=== PATIENT | female | born 1965 | race Caucasian/White ===

== ENCOUNTER → 2016-03-15 | Outpatient (CLI) | payer BC, OTHER ==
[2016-03-15 14:24] LABS: BASO % 0.3 %; BASO ABS # 0.02 K/uL (0-0.2); COMPLETE YES; EOS % 2.8 %; HEMATOCRIT 39.6 % (37-47); IG% 0.2 %; LYMPH % 32.8 %; LYMPH ABS # 2.01 K/uL (1.2-3.4); MEAN CELL VOLUME 91.2 fL (80-100); MEAN CORPUSCULAR HGB CONC 32.8 g/dl (32-36); MONO % 9.2 %; NEUT % 54.7 %; PLATELET COUNT 330 K/uL (130-400); RED BLOOD COUNT 4.34 M/uL (4.2-5.4); WHITE BLOOD COUNT 6.12 K/uL (4.8-10.8)
[2016-03-15 14:30] LABS: ALT/SGPT 49 U/L (12-78); BLOOD UREA NITROGEN 14 mg/dl (7-18); BUN/CREATININE RATIO 19.7 (10-20); CALCIUM 8.9 mg/dl (8.5-10.1); CARBON DIOXIDE 23 mmol/L (21-32); CHLORIDE 106 mmol/L (98-107); CHOLESTEROL 271 mg/dl (0-200); CREATININE 0.73 mg/dl (0.60-1.20); GLUCOSE 108 mg/dl (70-99); POTASSIUM 3.9 mmol/L (3.5-5.1); SODIUM 141 mmol/L (136-145)
[2016-03-15 14:34] LABS: ALB/GLOB RATIO 0.9 (0.9-2); ALKALINE PHOSPHATASE 81 U/L (45-117); AST/SGOT 21 U/L (15-37); CHOLESTEROL/HDL RATIO 6.5; HDL CHOLESTEROL 42 mg/dl; LDL CHOLESTEROL CALCULATED 166 mg/dl; TRIGLYCERIDES 314 mg/dl (0-150); VERY LOW DENSITY LIPOPROT CALC 63 mg/dl
== END | disposition home or self-care (01) ==
LOC: C.LABSPEC 13:16
PROVIDERS: ATTEND Family Medicine
DX: E78.2 Mixed hyperlipidemia (principal); M79.2 Neuralgia and neuritis, unspecified; M54.9 Dorsalgia, unspecified

== ENCOUNTER → 2016-09-21 | Outpatient (CLI) | payer BC, OTHER ==
[2016-09-21 18:46] LABS: BASO % 0.3 %; BASO ABS # 0.03 K/uL (0-0.2); COMPLETE YES; HEMATOCRIT 37.6 % (37-47); IG% 0.3 %; LYMPH % 30.8 %; LYMPH ABS # 3.62 K/uL (1.2-3.4); MEAN CELL VOLUME 90.8 fL (80-100); MEAN CORPUSCULAR HEMOGLOBIN 30.2 pg (25-34); MEAN CORPUSCULAR HGB CONC 33.2 g/dl (32-36); MEAN PLATELET VOLUME 9.2 fL (7.4-10.4); MONO % 5.7 %; NEUT % 60.9 %; PLATELET COUNT 355 K/uL (130-400); RED BLOOD COUNT 4.14 M/uL (4.2-5.4); WHITE BLOOD COUNT 11.74 K/uL (4.8-10.8)
[2016-09-21 18:52] LABS: ALT/SGPT 32 U/L (12-78); BLOOD UREA NITROGEN 12 mg/dl (7-18); BUN/CREATININE RATIO 14.4 (10-20); CALCIUM 8.7 mg/dl (8.5-10.1); CARBON DIOXIDE 26 mmol/L (21-32); CHLORIDE 105 mmol/L (98-107); CHOLESTEROL 178 mg/dl (0-200); CREATININE 0.84 mg/dl (0.60-1.20); GLUCOSE 134 mg/dl (70-99); POTASSIUM 3.6 mmol/L (3.5-5.1); SODIUM 139 mmol/L (136-145)
[2016-09-21 18:55] LABS: ALB/GLOB RATIO 0.9 (0.9-2); ALKALINE PHOSPHATASE 77 U/L (45-117); AST/SGOT 16 U/L (15-37); CHOLESTEROL/HDL RATIO 4.1; HDL CHOLESTEROL 43 mg/dl; LDL CHOLESTEROL CALCULATED 82 mg/dl; TRIGLYCERIDES 265 mg/dl (0-150); VERY LOW DENSITY LIPOPROT CALC 53 mg/dl
== END | disposition home or self-care (01) ==
LOC: C.LABSPEC 15:14
PROVIDERS: ATTEND Family Medicine
DX: E78.2 Mixed hyperlipidemia (principal)

== ENCOUNTER → 2016-10-13 | Outpatient (CLI) | payer OTHER ==
[2016-10-13 13:47] LABS: ALT/SGPT 77 U/L (12-78); BLOOD UREA NITROGEN 10 mg/dl (7-18); BUN/CREATININE RATIO 12.2 (10-20); CALCIUM 9.4 mg/dl (8.5-10.1); CARBON DIOXIDE 26 mmol/L (21-32); CHLORIDE 105 mmol/L (98-107); CREATININE 0.85 mg/dl (0.60-1.20); GLUCOSE 93 mg/dl (70-99); SODIUM 140 mmol/L (136-145)
[2016-10-13 14:00] LABS: ALB/GLOB RATIO 0.9 (0.9-2); ALKALINE PHOSPHATASE 94 U/L (45-117); AST/SGOT 40 U/L (15-37)
== END | disposition home or self-care (01) ==
LOC: C.LABSPEC 12:51
PROVIDERS: ATTEND Family Medicine
DX: R53.83 Other fatigue (principal); R11.0 Nausea

== ENCOUNTER → 2016-11-29 | Outpatient (CLI) | payer OTHER ==
[2016-11-29 18:50] LABS: THYROID STIMULATING HORMONE 1.2 uIu/ml (0.300-4.500)
== END | disposition home or self-care (01) ==
LOC: C.LABSPEC 18:10
PROVIDERS: ATTEND Family Medicine
DX: E03.9 Hypothyroidism, unspecified (principal)

== ENCOUNTER → 2017-03-29 | Outpatient (CLI) | payer OTHER ==
[2017-03-29 14:32] LABS: BASO % 0.3 %; BASO ABS # 0.03 K/uL (0-0.2); EOS % 1.7 %; EOS ABS # 0.15 K/uL (0-0.5); HEMATOCRIT 40.9 % (37-47); HEMOGLOBIN 13.6 g/dL (12.0-16.0); IG# 0.01 K/uL (0.00-0.02); LYMPH % 34.1 %; LYMPH ABS # 2.93 K/uL (1.2-3.4); MEAN CELL VOLUME 91.1 fL (80-100); MEAN CORPUSCULAR HEMOGLOBIN 30.3 pg (25-34); MEAN CORPUSCULAR HGB CONC 33.3 g/dl (32-36); MEAN PLATELET VOLUME 9.4 fL (7.4-10.4); MONO % 8.5 %; MONO ABS # 0.73 K/uL (0.11-0.59); NEUT % 55.3 %; NEUT ABS # 4.73 K/uL (1.4-6.5); PLATELET COUNT 356 K/uL (130-400); RED CELL DISTRIBUTION WIDTH CV 13.6 % (11.5-14.5); WHITE BLOOD COUNT 8.58 K/uL (4.8-10.8)
[2017-03-29 15:18] LABS: ALBUMIN 3.5 gm/dl (3.4-5.0); ALT/SGPT 52 U/L (12-78); BLOOD UREA NITROGEN 14 mg/dl (7-18); CALCIUM 9.5 mg/dl (8.5-10.1); CARBON DIOXIDE 29 mmol/L (21-32); CHOLESTEROL 179 mg/dl (0-200); CREATININE 0.71 mg/dl (0.60-1.20); GLUCOSE 93 mg/dl (70-99); POTASSIUM 4.6 mmol/L (3.5-5.1); SODIUM 138 mmol/L (136-145)
[2017-03-29 15:27] LABS: ALKALINE PHOSPHATASE 99 U/L (45-117); AST/SGOT 23 U/L (15-37); LDL CHOLESTEROL CALCULATED 73 mg/dl; TOTAL PROTEIN 7.5 gm/dl (6.4-8.2)
== END | disposition home or self-care (01) ==
LOC: C.LABSPEC 12:23
PROVIDERS: ATTEND Family Medicine
DX: E78.2 Mixed hyperlipidemia (principal); F32.9 Major depressive disorder, single episode, unspecified; E03.9 Hypothyroidism, unspecified

== ENCOUNTER 2020-06-06 06:48 | Observation (INO) ==
--- NOTE | 2020-05-30 19:32 | History and Physical Report ---
DATE OF ADMISSION: 06/06/2020 CHIEF COMPLAINT: Left knee pain and discomfort. HISTORY OF PRESENT ILLNESS: The patient is a 54-year-old female well known to me from previous right knee replacement done almost 3 years ago. She has got a long history of knee problems. She has been through extensive conservative treatment in the past, which has not helped much. She takes oral medicines without much relief. She has had injections, which do not really help much. Her right knee is doing well that she has had it replaced and she is limited by her left knee pain. It is a constant pain. The more she walks, the more it hurts. She can walk a couple of blocks and that is about it. Since her last surgery, she has lost about 50 pounds. Unfortunately, she has gained some of this back due to her difficulty maintaining an active lifestyle and the COVID epidemic. She would like to have her left knee fixed. PAST MEDICAL HISTORY: 1. ____ 2. ____ 3. Hypothyroidism. 4. Low back pain/sciatica. 5. Gastroesophageal reflux disease. PAST SURGICAL HISTORY: Includes, 1. Right knee replacement done on 08/23/2017. 2. Endometrial ablation. ALLERGIES: LATEX AND AMOXICILLIN, WHICH CAUSE A RASH. ALSO DESCRIBES ALLERGIES TO SULFA, WHICH CAUSES A RASH. SHE ALSO HAS AN APPARENT NICKEL ALLERGY. CURRENT MEDICINES: Include, 1. Lipitor once a day. 2. Gabapentin 600 mg 3 times a day. 3. Levothyroxine 25 mcg a day. 4. Nabumetone ____ mg twice a day. SOCIAL HISTORY: Significant for a 54-year-old female. She does not smoke. One drink for a week. FAMILY HISTORY: Noncontributory. REVIEW OF SYSTEMS: Negative for diabetes, neurologic problem, vascular problems, bleeding disorders. No chest pain or shortness of breath. No history of DVT or PE. No history of bleeding problems. She does have a history of chronic stasis changes distally, which have improved since her weight loss. PHYSICAL EXAMINATION: GENERAL: Shows a pleasant, middle-aged female who looks to be in good health. HEENT: Benign. NECK: Supple, no lymphadenopathy. LUNGS: Clear to auscultation. HEART: Has a regular rate and rhythm. ABDOMEN: Soft, nontender, nondistended. EXTREMITIES: Grossly neurovascularly intact except as follows: Examination of the left knee reveals the patient ambulates independently. She has got valgus alignment to her knee. This is increased with weightbearing. She does limp on the left side. She has about a 10 degree flexion contracture on this side and can only bend to about 110. The knee is pretty stiff. She has crepitance and grinding with knee motion. No pain with hip motion. Examination of the right knee reveals a well-healed incision. No swelling. Range of motion 0-120. X-RAYS: X-rays of the left knee are reviewed. It shows advanced left knee DJD. She has complete loss of her lateral joint space. She has subchondral sclerosis. She has got osteophytes off the lateral femoral condyle and lateral tibial plateau. ASSESSMENT: A 54-year-old white female almost 3 years out from her right knee replacement with advanced left knee degenerative joint disease. She has failed conservative measures. She would like to have her left knee replaced. She has a history of chronic venous stasis changes, which are improved since her weight loss. PLAN: We are going to take her to the operating room and do a left total knee replacement. The risks and benefits of this procedure were explained to the patient including but not limited to DVT, PE, , infection, neurological injury, vascular injury, bleeding problem, pain, limited range of motion, stiffness, failure to relieve her symptoms, incomplete relief of symptoms, need for further surgery in the future, etc. The patient understands and desires to proceed. It was informed that at her young age, this might need to be redone or revised in the future. As far as discharge plans, she is planning to be discharged to a friend's house. She will use [facility]. We will likely use a [employer] knee due to a question of this NICKEL ALLERGY.
--- NOTE | 2020-06-03 12:54 | Anesthesiology Consultation ---
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 Preoperative COVID19 testing completed 06/02/2020 at [facility], results negative. -Patient is very anxious about SAB. Some awareness, but no pain or discomfort with previous SAB in 2018 for TKA. Reassurance provided. -Patient reports being extremely cold in PACU after TKA and that "they kept checking my temperature." Per review of records, temp WNL intra and post- operatively. Chart Review Chart Review: entry level administrative assistant initiated (from previous anesthesia eval) and Patient seen in Pre Admission Testing (03/04/20, R/S under new V#) History Surgery Operation Date: 06/06/20 09:05 Proposed Procedures p Left Total Knee Arthroplasty - Ap Roberts MD Height/Weight Height: 5 ft 6.5 in Weight: 87.09 kg Allergies Allergy/AdvReac Type Severity Reaction Status Date / Time latex Allergy Intermediate RASH, Verified 05/20/20 08:38 ITCHING Sulfa (Sulfonamide Allergy Intermediate Swelling Verified 05/20/20 08:38 Antibiotics) of Lip/Tongue/Throat amoxicillin Allergy Mild RASH Verified 05/20/20 08:38 nickel Allergy Mild SKIN Verified 05/20/20 08:56 IRRITATION Medications Home Medications Medication Instructions Recorded Confirmed Last Taken fexofenadine 180 mg PO QAM 02/04/20 05/20/20 Unknown acetaminophen 650 mg PO TID 05/20/20 05/20/20 Unknown atorvastatin 20 mg PO HS 05/20/20 05/20/20 Unknown gabapentin 300 mg PO TID 05/20/20 05/20/20 Unknown levothyroxine 50 mcg PO QAM 05/20/20 05/20/20 Unknown nabumetone 750 mg PO BID 05/20/20 05/20/20 Unknown Past Medical History Medical History Depression Hyperlipidemia Hypothyroidism Osteoarthritis Peripheral neuropathy Wheezing DURING SUMMER MONTHS (NO INHALER PRESCRIBED) Exercise / Class Metabolic Activity II 4-5 Yardwork/Stairs/Walk up hill Past Family History Family History Grandfather (Maternal) Family history of diabetes mellitus Father Family history of diabetes mellitus Past Surgical History Surgical History H/O LEEP History of anesthesia reaction TROUBLE W/ BODY TEMP. WITH RT TKA History of endometrial ablation History of knee replacement RT [place] teeth removed Past Anesthesia History No Family Hx of Anesthesia Complications PATIENT HAD ISSUES WITH FEELING COLD POST-OP WITH LAST TKA IN 2018. History of PONV No Hx of PONV and No Hx of Motion Sickness Social History Smoking Status: Never smoker Hx Alcohol Use: Yes alcohol intake frequency: holidays/special occasions only substance use type: does not use Physical Exam Vital Signs Vital Signs BP: 126/57 P: 80bpm SPO2: 97% RA T: 97.5 F R: 12 ENMT Mouth: + chipped teeth; no dental restorations and no loose teeth Thyromental Distance: < 3.5 Finger Breadths (3) Mallampati Class: IV Small oral opening. Neck normal visual inspection; neck extension not limited Respiratory normal respiratory effort, lungs clear to auscultation Cardiovascular RRR, no murmur, no edema Testing Laboratory Results Blood Type A Positive 06/02/20 08:49 Antibody Screen NEGATIVE 06/02/20 08:49 Laboratory Tests 06/02/20 06/02/20 06/02/20 08:47 08:47 08:47 WBC 8.11 Hgb 13.7 Hct 40.6 Plt Count 346 PT 9.8 INR 1.0 Sodium 141 Potassium 3.5 Chloride 109 H Carbon Dioxide 27 BUN 11 Creatinine 0.84 Glucose 82 Other Testing Electrocardiogram Date: 03/04/20 Findings: + NSR @ (69BPM with first-degree AV block.) Compared with EKG of 08/08/2017 no significant change was found. Chest X-Ray Date: 03/04/20 Findings: + NAD
[~2020-06-06 06:48] MED LIST: ACETAMINOPHEN 500 MG TAB PO SCH; BUPIVACAINE 0.25% 30 ML VIAL ONE; BUPIVACAINE 0.5 % 5 MG/1 ML PF 10ML VIAL ONE; BUPIVACAINE LIPOSOME/PF 266 MG, BUPIVACAINE/EPINEPHRINE 50 ML, SODIUM CHLORIDE 0.9% 30 ... INFIL SCH; EPINEPHrine INJ 1 MG/ML AMP ONE; FAMOTIDINE 20 MG TAB PO SCH; GABAPENTIN 900 MG DOSE PO SCH; GENERAL ORDER PROBLEM SCH; LR 500ML BOLUS, THEN 15ML/HR IV SCH; LR 60ML/HR IV SCH; Scopolamine 1 MG TDSY TD SCH; TRANEXAMIC ACID 1,000 MG **IV Intra-op IV SCH; ceFAZolin 2000MG 2,000 MG/15 ML SYR IV SCH
--- NOTE | 2020-06-06 06:52 | History & Physical Bridge Note ---
Date of Service June 06, 2020 History & Physical Bridge Note I have examined the patient, reviewed the History & Physical and in the interval since the performance of the History & Physical I have noted the following changes of clinical significance: no changes noted
[2020-06-06] MEDS ORDERED: LIDOCAINE 2% 20 MG/ML 5 ML SYR IV ONE (07:38)
[2020-06-06] MEDS ORDERED: MIDAZOLAM HCL 1 MG/ML 2ML VIAL ONE (07:38)
[2020-06-06] MEDS ORDERED: PROPOFOL IV EMULSION 10 MG/ML 20 ML VIAL IV ONE (07:38)
[2020-06-06] MEDS ORDERED: ONDANSETRON INJ 2 MG/ML 2 ML VIAL IV PRN ×2 (08:25→12:25)
[2020-06-06] MEDS ORDERED: ePHEDrine sulfate 50 MG/ML AMP IV PRN (08:25)
[2020-06-06] MEDS ORDERED: fentaNYL citrate 100 MCG/2 ML VIAL IV PRN (08:25)
[2020-06-06] MEDS ORDERED: PROMETHAZINE HCL 12.5 MG in SODIUM CHLORIDE 0.9% 50 ML IV PRN (08:25)
[2020-06-06] MEDS ORDERED: HYDROmorphone INJ 2 MG/ML SYR/VIAL IV PRN (08:25)
[2020-06-06] MEDS ORDERED: ATROPINE SULFATE 0.1 MG/ML 10ML SYR IV PRN (08:25)
[2020-06-06] MEDS ORDERED: SODIUM CHLORIDE 0.9% PF 50 ML VIAL ONE (08:33)
[2020-06-06] MEDS ORDERED: BACITRACIN INJ 50,000 UNIT VIAL ONE (08:33)
[2020-06-06] MEDS ORDERED: BUPIVACAINE LIPOSOME 1.3% 266 MG/20 ML VIAL ONE (08:33)
[2020-06-06] MEDS ORDERED: BUPIVACAINE 0.25% 30 ML VIAL ONE (08:33)
[2020-06-06] MEDS ORDERED: EPINEPHrine INJ 1 MG/ML AMP ONE (08:33)
[2020-06-06] MEDS ORDERED: KETAMINE 50 MG/5 ML SYRINGE ONE (09:01)
--- NOTE | 2020-06-06 11:03 | Operative Report ---
Post Operative Report Pre & Post Diagnosis Operation Date: 06/06/20 08:50 Pre-Op Diagnosis: Left Knee Degenerative Joint Disease Post-Op Diagnosis: Left Knee Degenerative Joint Disease I identified the patient and participated in the time-out.: Yes Procedure Operation Date: 06/06/20 08:50 Actual Procedures p Left Total Knee Arthroplasty(Left) - Ap Roberts MD Surgeon Ap Roberts MD Publishing Director NIKKO Krishnamurthy Estimated Blood Loss 50 Findings Consistent with Post-Op Diagnosis Operative findings revealed advanced left knee DJD. She had extensive grade 4 [id number] with disease and eburnation of the lateral compartment. She had more spotty but pretty extensive grade 4 changes medially as well as in the patellofemoral joint. She had a valgus deformity to her knee with a moderate-sized joint effusion. Fluids 1000 cc. Specimens Left knee sent for pathology. Drains None. Anesthesia Type Spinal MAC Complications none Disposition Accompanied Patient To Recovery: No Disposition: Recovery Room Indications Patient is a 54-year-old female has had a long history of bilateral knee pain discomfort. She been through extensive conservative treatment the past. She had a right knee replaced 2 and half years ago and done well with that. She continues to be limited by left knee pain discomfort is gotten worse over time. She elected proceed with left total knee arthroplasty. Due to her apparent nickel allergy we elected to use a G[employer]mith [employer] Nephew journey 2 zirconium total knee arthroplasty. Description of Procedure Operative implants consist of: 1. [employer]hew journey 2 size 4 left posterior stabilized femoral component. 2. [employer]hew journey 2 size 3 tibial tray. 3. 11 mm posterior stabilized polyethylene insert. 4. 29 x 9 all polypatella. The patient was taken to the operating identified and placed on the operating table supine position but all contact areas were properly padded with IV on by 5 by anesthesia team. A spinal anesthetic and abductor canal block had been applied in the holding area. Tate catheter was placed in sterile fashion. Left thigh turn was then placed in the left lower extremities and prepped and draped in the usual sterile fashion. The left leg was elevated exsanguinated with use of an Esmarch and tourniquet placed at 300 mmHg. An anterior approach to the left knee was then performed through longitudinal incision centered over the patella. Sharp dissection got through subcutaneous tissue down the extensor mechanism. A medial parapatellar arthrotomy incision was made. Some subperiosteal dissection was carried out medially. The fat pad was resected beneath patella tendon. The lateral patellofemoral ligament was released. Patella was subluxated laterally and the knee was flexed. The osteophytes were taken off distal femur. The ACL and PCL were then released from the distal femur and the tibia subluxated anteriorly. The external tibial alignment jig was then placed in the interface the tibia just 8 mm medially. Proximal tibial cut was made remove about 3 to 4 mm of bone from the medial side. The tibia was then sized to a size 3. I did downsize a slightly in order to get appropriate rotation of the tibial tray. Attention drawn the femur. The distal femur was entered the sharp drill. Intramedullary canal was suction. A left 5 degree valgus cutting guide was placed. This femoral cutting block was pinned in place but distal femoral cut was made to take an additional 2 mm bone off distal femur. We then sized the femur to a size 4. The AP cutting block was placed in the anterior cut, anterior cord, posterior cut, posterior chamfer, posterior anterior chamfer cuts were then made. The knee was then flexed. The remnants of the medial lateral menisci were excised. The osteophytes were taken off the posterior aspect the femur. The femoral component was placed. The milling device for the trochlea was placed and then the we are/intercondylar notch area was reamed. The trochlea was then placed. The tibial tray was then pinned in maximum external rotation. The drill and stem punch were used to create defect in proximal tibia for the tibial tray. We then trialed the knee. The 9 and 10 insert just seemed a little bit lax particularly in extension. With the 11 we had increased stability in extension and appropriate flexion. We elected to use these implants. Attention drawn the patella. The patella was cleaned of all soft tissue. Patella thickness measured 22 mm in thickness was cut down to 14. Sized to a size 29 patella. I did downsize a slightly in order to optimize patellofemoral tracking. The lug holes were drilled for the 29 patella. The lateral osteophyte is moved. Patella button was placed. Knee was taken through range of motion and patella tracked well with a no thumbs test. Attention drawn to placing permanent components. All trial components removed. Bone plug was placed into the distal femur to limit blood loss. A double batch [place] G cement was mixed. G[employer]mith [employer] Nephew journey 2 size 4 left posterior stabilized femoral component, a size 3 tibial tray, a 11 mm posterior stabilized polyethylene insert, and a 29 x 9 all polypatella then cemented in place. Knee was brought out into full extension total cement hardened. Final cement check was then performed. The pericapsular tissues were injected with total 100 cc of a combination of 20 cc of Exparel, 30 cc normal saline, 50 cc of quarter percent Marcaine with epinephrine. The tourniquet was then let down for time tourniquet time 72 minutes. Hemostasis assured use electrocautery. The extensor neck was then closed with combination with #1 PDS suture #1 Vicryl suture in [id number] fashion with extensor mechanism checked found to be intact the subcutaneous tissue then closed with 2 Dexon suture in a buried interrupted fashion skin was closed skin pamela. Leg was then cleaned dried and a sterile dressing both Xeroform, 4 fours, sterile ABD pad, sterile cast padding, Demond bandage were applied. Patient then transferred to the recovery in stable condition. Patient tolerated the procedure well and there were no complications. Pranav Krishnamurthy, my physician media assistant, was present for the entire procedure. His assistance was essential and required for appropriate patient positioning, prepping and draping, surgical exposure, performing the technical details of the operation, placement the implants, closure of the wound, and placement of the sterile bandage. I attest to the content of the Intraoperative Record and any orders documented therein. Any exceptions are noted below.
--- NOTE | 2020-06-06 11:41 | XRay Report ---
XR knee LT 1 or 2V routine CLINICAL HISTORY: Surgical Post Op COMPARISON: None. DISCUSSION: There are postsurgical changes of a total left knee arthroplasty and patellar resurfacing . The femoral tibial components appear well seated. There are overlying skin pamela. There is gas pr esent within the soft tissues consistent with recent surgery. IMPRESSION: Postsurgical changes of a total left knee arthroplasty. ACT 112: Negative or not required by law. Electronically signed by: Wilfrido Rivera M.D. 06/06/2020 11:39 AM
--- NOTE | 2020-06-06 12:17 | Anesthesiology Progress Note ---
Date of Service June 06, 2020 Anesthesia Post Procedure Vital Signs Vital Signs: Temp Pulse Pulse Resp BP BP Pulse Ox 06/06/20 11:30 36.5 C 69 14 104/69 100 06/06/20 11:20 66 18 106/64 100 06/06/20 11:10 73 16 132/63 100 06/06/20 11:00 79 15 120/67 99 06/06/20 10:54 36.7 C 80 16 127/56 L 100 06/06/20 07:34 36.8 C 78 18 116/87 99 Transfer of Care Handoff Completed per policy Notes Mental Status: alert / awake / arousable and participated in evaluation Patient Amnestic to Procedure: Yes Nausea / Vomiting: adequately controlled Pain: adequately controlled Airway Patency, RR, SpO2: stable & adequate BP & HR: stable & adequate Hydration State: stable & adequate Anesthetic Complications: no major complications apparent and Pt Satisfied with anesthetic care
[2020-06-06] MEDS ORDERED: METOCLOPRAMIDE HCL INJ 5 MG/ML 2 ML VIAL IV PRN (12:25)
[2020-06-06] MEDS ORDERED: NALOXONE HCL 0.4 MG/1 ML VIAL/CARP IV PRN (12:25)
[2020-06-06] MEDS ORDERED: bisacodyL 10 MG SUPP PR PRN (12:25)
[2020-06-06] MEDS ORDERED: HYDROmorphone INJ 0.5 MG/0.5 ML SYR IV PRN (12:25)
[2020-06-06] MEDS ORDERED: oxyCODONE HCL IR 5 MG TAB (IMMEDIATE RELEASE) PO PRN (12:25)
[2020-06-06] MEDS ORDERED: diphenhydrAMINE Capsule 25 MG CAP PO PRN (12:25)
[2020-06-06] MEDS ORDERED: MAGNESIUM HYDROXIDE SUSP 30 ML UDC PO PRN (12:25)
[2020-06-06] MEDS ORDERED: ALUMINUM/MAGNESIUM SUSP 30 ML UDC PO PRN (12:25)
[2020-06-06] MEDS: ACETAMINOPHEN 500 MG TAB PO SCH ×2 (14:05→20:57)
[2020-06-06] MEDS: KETOROLAC 30 MG/ML VIAL IV SCH ×2 (14:05→20:56)
[2020-06-06] MEDS: GABAPENTIN 300 MG CAP PO SCH ×2 (14:05→20:56)
[2020-06-06] MEDS ORDERED: TRANEXAMIC ACID / 0.7% NACL 1,000 MG/100 ML BAG IV SCH (17:00)
[2020-06-06] MEDS: SODIUM CHLORIDE 0.9% 1000ML 1,000 ML IV SCH (18:35)
[2020-06-06] MEDS: Scopolamine CHECK PATCH PLACEMENT SCH ×2 (18:36→23:51)
[2020-06-06] MEDS: FERROUS GLUCONATE 324 MG TAB PO SCH (18:37)
[2020-06-06] MEDS: ASCORBIC ACID 500 MG TAB PO SCH (18:37)
[2020-06-06] MEDS: ceFAZolin 2000MG 2,000 MG/15 ML SYR IV SCH (18:38)
[2020-06-06] MEDS: TAPENTADOL HCL ER 50 MG TABCR PO SCH (20:54)
[2020-06-06] MEDS: DOCUSATE SODIUM 100 MG CAP PO SCH (20:55)
[2020-06-06] MEDS: ASPIRIN 81 MG ECTAB PO SCH (20:56)
[2020-06-06] MEDS ORDERED: ATORVASTATIN 20 MG TAB PO SCH (21:00)
[2020-06-06] MEDS ORDERED: SENNA 8.6 MG TAB PO SCH (21:00)
[2020-06-07] MEDS: ceFAZolin 2000MG 2,000 MG/15 ML SYR IV SCH (02:03)
[2020-06-07] MEDS: KETOROLAC 30 MG/ML VIAL IV SCH ×2 (02:03→07:59)
[2020-06-07] MEDS: SODIUM CHLORIDE 0.9% 1000ML 1,000 ML IV SCH (04:59)
[2020-06-07] MEDS: ACETAMINOPHEN 500 MG TAB PO SCH (05:00)
[2020-06-07] MEDS ORDERED: LEVOTHYROXINE SODIUM 50 MCG TABLET PO SCH (06:30)
[2020-06-07] MEDS: ASPIRIN 81 MG ECTAB PO SCH (08:00)
[2020-06-07] MEDS: ASCORBIC ACID 500 MG TAB PO SCH (08:00)
[2020-06-07] MEDS: DOCUSATE SODIUM 100 MG CAP PO SCH (08:00)
[2020-06-07] MEDS: Scopolamine CHECK PATCH PLACEMENT SCH (08:00)
[2020-06-07] MEDS: FERROUS GLUCONATE 324 MG TAB PO SCH (08:00)
[2020-06-07] MEDS ORDERED: dexAMETHasone 4 MG TAB PO SCH (08:00)
[2020-06-07] MEDS: GABAPENTIN 300 MG CAP PO SCH (08:00)
[2020-06-07 08:03] LABS: Hematocrit (blood only) 32.6 % (37-47); Hemoglobin 10.8 g/dL (12.0-16.0); Mean Corpuscular Hemoglobin 30.7 pg (25-34); Mean Corpuscular Hgb Conc 33.1 g/dL (32-36); Mean Corpuscular Volume 92.6 fL (80-100); Mean Platelet Volume 8.7 fL (7.4-10.4); Platelet Count 236 K/uL (130-400); RDW Coefficient of Variation 13.6 % (11.5-14.5); RDW Standard Deviation 46.3 fL (36.4-46.3); Red Blood Count 3.52 M/uL (4.2-5.4); White Blood Count 6.97 K/uL (4.8-10.8)
[2020-06-07] MEDS: TAPENTADOL HCL ER 50 MG TABCR PO SCH (08:12)
[2020-06-07 08:31] LABS: BUN Creatinine Ratio 16.5 (10-20); Creatinine Clr Calc Pharmacy 96.3 ml/min; Est GFR (African American) 100.6; Est GFR (Non-African American) 86.8
[2020-06-07] MEDS ORDERED: FEXOFENADINE HCL 180 MG TAB PO SCH (09:00)
[2020-06-07] MEDS ORDERED: MULTIVITAMIN TAB PO SCH (09:00)
--- NOTE | 2020-06-07 09:44 | Progress Notes ---
DATE: 06/07/2020 SUBJECTIVE: A 54-year-old female postop day 1 from a left knee replacement. She is doing pretty well. Having a little bit of soreness, but pain is controlled. Had a pretty good night. No chest pain or shortness of breath. Not feeling dizzy or lightheaded. OBJECTIVE: VITAL SIGNS: Temperature 36.5. Vital signs stable. GENERAL: Shows a pleasant, middle-aged female. She is sitting up in her bedside chair, eating breakfast. She looks comfortable. LUNGS: Clear to auscultation. HEART: Regular rate and rhythm. ABDOMEN: Soft, nontender, nondistended. EXTREMITIES: Grossly neurovascularly intact except as follows. Examination of the left leg shows the leg to be well aligned. Dressing is clean, dry and intact. She can dorsiflex and plantarflex her foot appropriately. She is neurologically intact. LABORATORY DATA: Hemoglobin 10.8. Hematocrit 32.6. Electrolytes are stable. ASSESSMENT: A 54-year-old female postop day 1 from a left knee replacement, doing pretty well. Pain is controlled. She is neurologically intact. PLAN: 1. DVT prophylaxis including thigh-high TEDs, SCDs, and aspirin twice a day. 2. PT/OT. Weight bear as tolerated. Left total knee protocol. 3. Pain control, doing well with current pain regimen. 4. Disposition: Plan to discharge to home with some home health once her pain is controlled and does okay in therapy.
--- NOTE | 2020-06-09 13:41 | Discharge Summary ---
Date of Service June 09, 2020 Discharge Data Procedures Performed Operation Date: 06/06/20 08:50 Actual Procedures p Left Total Knee Arthroplasty(Left) - Ap Roberts MD Hospital Course (1) Status post total left knee replacement: This patient is a 54 eyar old female admitted on 06/06/20 and underwent total knee arthroplasty. She tolerated the procedure well and there were no complications. Transferred to the PACU post op and later to the orthopedic floor for further care. She was given ancef for antibiotic prophylaxis. She was also given DARCIE stockings, SCDs, and aspirin for DVT prophylaxis. Hemoglobin, hematocrit, and vital signs were monitored during her hospital stay and remained stable. Did not require any blood transfusions. There were no complications duri ng her hospital stay. By post op day #1 the patient was tolerating a regular diet, pain was reasonably controlled with oral pain medicine, and she was participating in physical therapy. On post op day #1 the patient was discharged home and set up with home health care. She was given printed discharge instructions including prescriptions for extra strength tylenol, aspirin, and oxycodone. Continue physical therapy, weight bearing as tolerated. Continue DARCIE stockings. Follow up approximately 2 weeks post op or sooner if there are problems or concerns. Coding Level of Care Code None Diagnoses Status post total left knee replacement Z96.652
== END 2020-06-07 14:28 | disposition home health service (06) ==
LOC: ASU 06:48 → 3E 06:48